=== PATIENT | female | born 1995 | race African-American/Black ===

== ENCOUNTER 2017-12-22 00:09 | Emergency (ER) | payer OTHER ==
[~2017-12-22] VITALS: Ht 170.2 cm; Wt 86.7 kg
[2017-12-22 00:19] VITALS: BP 113/72
== END 2017-12-22 04:50 | disposition left against medical advice (07) ==
LOC: ER 00:09
DX: Z53.21 Procedure and treatment not carried out due to patient leaving prior to being seen by health care provider (principal)